=== PATIENT | male | born 1930 | race Caucasian/White ===

== ENCOUNTER → 2017-04-26 | Day surgery (SDC) | payer MEDICARE, OTHER ==
[~2017-04-26] VITALS: Ht 172.7 cm; Wt 56.4 kg
[~2017-04-26] MED LIST: ASCO-294 PO; ASPI-973 PO; ATEN50TA PO; Atropine 0.4 mg/mL Inj IVPUSH PRN; CHOL400T PO; EPHEDrine Sulfate 50 mg/mL Inj IVPUSH PRN; HYDR-3825 PO; HYDROcodone-APAP 5-325 mg Tablet PO PRN; KETO120S3 TP; LATA2.5D6 OP; LOSA50TA37 PO; Labetalol 5 mg/mL 20 mL Inj IV PRN; Lactated Ringer's 1,000 ML IV SCH; Lactated Ringer's 500 ML IV PRN; METF-495 PO; Mevacor PO; Ondansetron 2 mg/mL 2 mL Inj IVPUSH PRN; Phenylephrine 10,000 mCg/mL Inj IVPUSH PRN; Propofol 10,000 mCg/mL 20 mL Inj ONE; VIT1CAPS10 PO; VIT1TABL83 PO; fentaNYL-PF 50 mCg/mL 2 mL Inj IVPUSH PRN
[2017-04-26 06:13] VITALS: BP 163/71; PULSE 57; RESP 16; O2SAT 100
[2017-04-26] MEDS: Lactated Ringer's 1,000 ML IV SCH ×2 (06:29→07:19)
[2017-04-26 07:57] VITALS: BP 139/81; PULSE 63; RESP 16; O2SAT 100
[2017-04-26 08:21] VITALS: BP 137/95; PULSE 59; RESP 16; O2SAT 98
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
--- NOTE | 2017-04-26 08:34 | PCM.ANEP1 ---
Post Anesthesia PACU Phase 1 Assessment Vital Signs Vital Signs Date Time Temp Pulse Resp B/P Pulse Ox O2 Delivery O2 Flow Rate FiO2 04/26/17 08:21 59 16 137/95 98 Room Air 04/26/17 07:57 36.3 63 16 139/81 100 Room Air 04/26/17 06:13 36.6 57 16 163/71 100 Room Air Anesthetic Administered: Regional Block Level of Alertness: Awake, talking BRADY's with Equal Strength: Yes Pain: No Nausea or Vomiting: No CV Function & Hydration Stable: Yes Airway Device: n/a Oxygen Delivery: Room Air Lungs: Clear to Auscultation, Normal Air Movement Dermatome Level: Full Sensation PACU Phase 2 Assessment Complications: No Follow up Care: N/A Patient Instructions Provided: N/A Florencio Renteria MD Apr 26, 2017 08:34
--- NOTE | 2017-04-27 01:24 | OP ---
[address] [address] OPERATIVE REPORT PATIENT: EDWARD ARCHIBALD : 1930 MR#: [id number] ADMIT: 04/26/2017 JOB ID: [id number] DATE OF SURGERY: 04/26/2017 PREOPERATIVE DIAGNOSIS(ES): Left carpal tunnel syndrome. POSTOPERATIVE DIAGNOSIS(ES): Left carpal tunnel syndrome. PROCEDURE: Left open carpal tunnel release. SURGEON: Kwame Burch D.O. ANESTHESIA: Damaris block. BRIEF HISTORY: The patient is a pleasant 86-year-old male with longstanding history of left hand numbness and tingling, who was treated conservatively for carpal tunnel syndrome. He failed conservative treatment. He also demonstrated with electrodiagnostic findings that confirmed severe findings of carpal tunnel syndrome. I discussed with patient, as well as his , the risks, benefits, alternatives and indications to proceed with left open carpal tunnel release. Given the severity of his current symptoms, I discussed with him that there is a likelihood that his sensation would not be fully returned to normal, but the goal for surgery is to prevent his symptoms from worsening and it may take upward of a year to see how much of his sensation returns. He understands the risk are including, but not limited to, neurovascular injury, tendon injury, infection, failure to resolve the patient of his preoperative symptoms, stiffness, persistent pain, all which may require further intervention. The patient had all questions answered. Consent was signed and placed in the chart. PROCEDURE IN DETAIL: The patient was brought to the operative suite and placed supine on the operating table. Surgical time-out was performed. Everyone in the room was in agreement. After appropriate anesthesia was obtained, the left upper extremity was then prepped and draped in sterile fashion. A 2 cm longitudinal incision was made in-line with the radial aspect of the ring finger and the ulnar aspect of the palmaris longus. The incision was kept distal to the wrist crease and proximal to Florence's cardinal line. Subcutaneous tissues were dissected with bipolar electrocautery, utilized to maintain hemostasis throughout the procedure. The palmar fascia was first identified and incised longitudinally in-line with the skin incision, followed by exposure of the underlying transverse carpal ligament. Transverse carpal ligament was then released in its entirety to include the distal extent of the antebrachial fascia. Copious irrigation was then performed, followed by closure of skin with 5-0 nylon in simple interrupted fashion. ESTIMATED BLOOD LOSS: Less than 1 cc. COMPLICATIONS: None. DISPOSITION: The patient tolerated the procedure well, anesthesia was reversed, and patient was transferred to PACU for recovery. POSTOPERATIVE PLAN: The patient will follow up in my office in two weeks. We will remove the patient's sutures at that time and have him start working on range of motion and scar mobilization. CHASE
== END | disposition home or self-care (01) ==
LOC: SAS 05:42
PROVIDERS: ATTEND Orthopaedic Surgery
DX: G56.02 Carpal tunnel syndrome, left upper limb (principal); I10 Essential (primary) hypertension; F34.1 Dysthymic disorder; E78.00 Pure hypercholesterolemia, unspecified; E11.9 Type 2 diabetes mellitus without complications; Z85.46 Personal history of malignant neoplasm of prostate; Z79.82 Long term (current) use of aspirin; Z79.84 Long term (current) use of oral hypoglycemic drugs
CPT/HCPCS: 64721; J7120